=== PATIENT | male | born 1980 | race Caucasian/White ===

== ENCOUNTER 2024-12-22 20:17 | Emergency (ER) | payer BC ==
[~2024-12-22] VITALS: Ht 172.7 cm; Wt 68.0 kg
[2024-12-22] MEDS ORDERED: LACOSAMIDE150 M1 PO (20:26)
[2024-12-22] MEDS ORDERED: LEVETIRACETAM500 MG PO (20:26)
[2024-12-22] MEDS ORDERED: Sulfamethoxazole/Trimethopri 1 TAB TAB PO ONE (20:50)
[2024-12-22] MEDS ORDERED: Lidocaine Hydrochloride 5 ML AMP SC ONE (21:15)
[2024-12-22] MEDS ORDERED: SEPTDS PO (21:25)
== END 2024-12-22 21:33 | disposition home or self-care (01) ==
LOC: ED 20:17
DX: L72.3 Sebaceous cyst (principal); H92.01 Otalgia, right ear